=== PATIENT | male | born 1930 | race Caucasian/White ===

== ENCOUNTER 2018-10-08 02:03 | Inpatient (IN) | payer MEDICARE ==
[2018-10-08 02:35] LABS: #Eosinphils 0.3 thou/uL (0.0-0.7); #Lymphocytes 1.6 thou/uL (1.20-3.40); #Monocytes 0.6 thou/uL (0.11-0.59); #Neutrophils 3.3 thou/uL (1.40-6.50); %Basophils 0.6 % (0.0-1.0); %Eosinophils 4.7 % (0.0-10.0); %Lymphocytes 26.9 % (21.0-51.0); %Neutrophils 57.7 % (42.0-75.0); Hemoglobin 13.7 g/dL (14.0-18.0); Mean Corpuscular HGB CONC 33.8 g/dL (32.0-36.0); Mean Corpuscular Hemoglobin 32.3 pg (27.0-31.0); Mean Corpuscular Volume 95.4 fL (78.0-98.0); Mean Platelet Volume 7.2 fL (7.4-10.4); Platelet Count 178 thou/uL (130-400); RBC Distribution Width 12.6 % (11.5-14.5); Red Blood Cell (RBC) Count 4.26 mill/uL (4.70-6.10); White Blood Cell (WBC) Count 5.8 thou/uL (4.8-10.8)
[2018-10-08] MEDS ORDERED: Diltiazem HCl 125 MG, Admixture Fee 1 EACH in Sodium Chloride 0.9% 100 ML IVPB SCH (02:45)
[2018-10-08 02:57] LABS: ALT (SGPT) 11 U/L (8-55); AST (SGOT) 15 U/L (5-34); Albumin 3.5 g/dL (3.4-4.8); Alkaline Phosphatase 109 U/L (40-150); Anion Gap 14 mmol/L (10-20); BUN (Urea Nitrogen) 17 mg/dL (8.4-25.7); Bilirubin, Total 0.8 mg/dL (0.2-1.2); CK (CPK) 57 U/L (30-200); Calc. Creatinine Clearance 0 mL/min (70-130); Calcium 9.1 mg/dL (7.8-10.44); Carbon Dioxide 23 mmol/L (23-31); Chloride 105 mmol/L (98-107); Estimated GFR-MDRD 62; Globulin 3.4 g/dL (2.4-3.5); Glucose 126 mg/dL (83-110); Potassium 3.9 mmol/L (3.5-5.1); Protein, Total 6.9 g/dL (5.8-8.1); Sodium 138 mmol/L (136-145)
[2018-10-08 03:19] LABS: CKMB 2.1 ng/mL (0-6.6)
[2018-10-08] MEDS ORDERED: Enoxaparin Sodium 80 MG/0.8 ML SYRINGE ONE (05:13)
[2018-10-08 06:20] LABS: Troponin I 1.357 ng/mL (< 0.028)
[2018-10-08] MEDS ORDERED: Sodium Chloride 0.9% 1,000 ML IV SCH (06:45)
[2018-10-08 06:48] VITALS: BMI 25.4
[2018-10-08] MEDS ORDERED: Ondansetron ODT 4 MG TAB PO PRN (07:38)
[2018-10-08] MEDS ORDERED: Ondansetron PF 4 MG/2 ML Vial IVP PRN (07:38)
[2018-10-08] MEDS: Famotidine/PF 20 mg/2ml Vial SLOW IVP SCH ×2 (08:27→21:18)
--- NOTE | 2018-10-08 08:39 | RAD ---
CHEST ONE VIEW: History: Chest pain. Comparison: 05-20-17 FINDINGS: No left basilar airspace opacities. No pneumothorax. Mild pulmonary venous congestion. No acute osseo us abnormality. Dense calcifications of the transverse aorta. IMPRESSION: 1. Left basilar airspace opacity may reflect a combination of infection and scar. 2. Mild pulmonary venous congestion. POS: [facility]
[2018-10-08] MEDS ORDERED: Non-Formulary Item 1 EACH (Cholecalciferol (Vitamin D3) [Vitamin D3] 2,000 UNIT) PO SCH (09:00)
[2018-10-08 09:54] LABS: Troponin I 2.419 ng/mL (< 0.028)
[2018-10-08] MEDS ORDERED: Communication Order-Pharmacy FS SCH (11:00)
--- NOTE | 2018-10-08 11:22 | HP ---
CHIEF COMPLAINT: Chest pain with palpitations. HISTORY OF PRESENT ILLNESS: This is a pleasant 88-year-old man, presenting with chest pain that woke him from his sleep at approximately 1:00 a.m. this morning. He describes the pain as a pressure, 7/10 in severity, and radiating down to both shoulders and arms. He reports having a high threshold for pain and experiencing similar discomfort with previous MIs. He reports having palpitations. He was instructed by EMS to take 4 baby aspirins. Upon arrival by EMS, he was given nitroglycerin with immediate relief from his pain. Denies any recurrent pain since. The patient has a known history of IN x2. He had an IN in March of 1982 and May of 1982. In May of 1982, he underwent a CABG x1. Since then, he has been under Cardiology, undergoing followup every 6 months. Recently in June, he was switched from [facility] in [place] to [facility] since moving to [place]. The patient has been undergoing evaluation for potential permanent pacemaker. He last underwent studies including an echo in June 2018. In the ED, the patient underwent workup including an initial TNI that was normal. The second TNI was raised at 1.357. He was initiated on Lovenox 1 mg/kg in the ED, which we will continue. BNP was raised up to 1.5. Laboratory studies including full blood count and chemistry, otherwise unremarkable. The ECG obtained in the ED showed changes suggestive of a new AF with RVR. Therefore, he was started on Cardizem. He has been admitted for further workup and management for possible ACS. REVIEW OF SYSTEMS: The patient states he has been doing well overall and has had no general complaints in recent days. Reports having a good appetite with no weight loss. He denies any headaches. No vision disturbances. No recent sore throat. Has had some sinus congestion. Denies any shortness of breath or any cough. No abdominal pain, nausea, or vomiting. No recent changes with his stools. Denies having any genitourinary complaints. Has been mobilizing as normal without any difficulties. No weakness. No neurological symptoms. All other review of systems except those mentioned in HPI are negative. PAST MEDICAL HISTORY: 1. IN x2 in 1981. 2. Arrhythmia. 3. High cholesterol. PAST SURGICAL HISTORY: 1. Status post CABG in May 1982. SOCIAL HISTORY: The patient lives with his . Functions independently. Does not require any assistive devices to mobilize. Denies any alcohol abuse or illicit drug use. He is a nonsmoker. IMAGING STUDIES: Chest x-ray done on October 08, 2018, awaiting report. PHYSICAL EXAMINATION: VITAL SIGNS: Temperature 97.5, pulse 99, respirations 18, blood pressure 109/75 , and O2 saturation 95% on room air. GENERAL: The patient appears to be in good spirits. He is comfortable and resting. Does not appear to be in any distress. SKIN: Normal, warm, and dry without any rashes. HEENT: Normocephalic and atraumatic. Pupils equal, round, and reactive to light. Sclerae are anicteric. Oropharynx is clear. NECK: Supple without lymphadenopathy. CARDIOVASCULAR: Regular rate and rhythm. No reproducible chest pain on exam with palpation. LUNGS: Clear to auscultation bilaterally without any wheezes, rales, or rhonchi. ABDOMEN: Soft, nontender, nondistended. Normoactive bowel sounds present. EXTREMITIES: No clubbing, cyanosis, or edema. No calf tenderness. NEUROLOGIC: Alert and oriented x3. No focal deficits. ALLERGIES: Hydrocodone MEDICATIONS: 1. Tamsulosin 0.4 mg p.o. daily. 2. Ranexa 500 mg p.o. b.i.d. 3. Vitamin D3 of 2000 units p.o. daily. 4. Atorvastatin 40 mg p.o. at bedtime. 5. Propranolol 40 mg p.o. b.i.d. 6. Probiotic one capsule p.o. at bedtime. 7. Aspirin 81 mg p.o. daily. IMPRESSION AND PLAN: The patient will be admitted for management of the following conditions. 1. Chest pain. Second TNI raised at 1.357. ECG showing changes of new AF with RVR. Recent ECG with left bundle-branch block noted, unclear if this is new or old. Records including most recent ECGs will be obtained from [facility]. Cardiology consult placed. Lovenox 1 mg/kg twice daily started. Awaiting third TNI. 2. High cholesterol. Continue atorvastatin. 3. Gastrointestinal prophylaxis. 4. Venous thromboembolism prophylaxis with mechanical SCDs, given he has been initiated on Lovenox. Discussed with Dr. Mae, who agrees with the plan of care as described above. Job ID: [id number] [facility]
[2018-10-08] MEDS ORDERED: Aspirin 81 mg Enteric Coated Tablet PO SCH (12:30)
--- NOTE | 2018-10-08 12:32 | CON ---
DATE OF CONSULTATION: 10/08/2018 TYPE OF CONSULTATION: Cardiology. REASON FOR CONSULTATION: Non-ST elevation myocardial infarction, atrial fibrillation, and previous bypass surgery. HISTORY OF PRESENT ILLNESS: Mr. Kerr is a very pleasant 88-year-old gentleman, patient of Dr. Sung in [place]. The patient has a very long cardiac history. The patient stated he initially presented after having a myocardial infarction in 1981. He was at [facility] in [place]. He underwent bypass surgery x1, apparently a saphenous vein graft, as he said there was a vein harvested from his leg. He has done well since then. He has had occasional chest pain, but it is infrequent. He says he has been seen by a nurse aide evaluator and has a stress test about every 6 months. He has been doing well. He said he is at [place] and [place]. There is some consideration that he may at some point need pacemaker insertion. His chest pain was controlled on medicine. He started having chest pain at rest last night and ultimately came to the hospital with atrial fibrillation with a rapid ventricular response. He has been admitted here for further evaluation. PAST MEDICAL HISTORY: Past history as mentioned above. 1. Bypass surgery in 1981. 2. Apparently, he has angina as he is on Ranexa. 3. Hypercholesterolemia. ALLERGIES: HYDROCODONE. MEDICATIONS: At home; 1. Aspirin 81 mg a day. 2. Atorvastatin 40 mg a day. 3. Vitamin D3. 4. Ranexa 500 mg twice a day. 5. Tamsulosin 0.4 mg a day. 6. Propranolol 40 mg twice a day. SOCIAL HISTORY: No alcohol or tobacco. FAMILY HISTORY: Negative for heart disease at a young age. REVIEW OF SYSTEMS: CONSTITUTIONAL: No significant weight gain or loss. VISION: No changes. HEARING: No changes. PULMONARY: No cough or wheezing. GASTROINTESTINAL: No nausea, vomiting, or diarrhea. SKIN: No rashes. NEUROLOGIC: No unilateral weakness or numbness. PSYCHIATRIC: No unusual depression or anxiety. HEMATOLOGIC: No unusual bruising. GENITOURINARY: No burning with urination. MUSCULOSKELETAL: No unusual joint pains. PHYSICAL EXAMINATION: GENERAL: On examination, this is a pleasant elderly gentleman, in no distress. VITAL SIGNS: Blood pressure 112/65 and pulse 78, it is irregular. HEENT: Eyes, sclerae nonicteric. Mouth, mucous membranes moist. NECK: Supple. No lymphadenopathy. LUNGS: Clear anteriorly and posteriorly and some rhonchi. CARDIAC: Irregularly irregular. I do not hear murmur, rub, or gallop. ABDOMEN: Soft and nontender. No hepatosplenomegaly. EXTREMITIES: Warm and dry. No clubbing or cyanosis. There is no edema. Peripheral pulses are intact, dorsalis pedis and posterior tibial. SKIN: Warm and dry. PERTINENT LABORATORY: Hemoglobin is 13.7 and hematocrit 40.6. Potassium is 3.9 and creatinine is 1.13. Troponin 2.419. Medicines since he has arrived here, he has received Lovenox 1 mg/kg subcutaneously at 5:36 this morning. He is currently pain free. DIAGNOSTIC STUDIES: EKG shows sinus rhythm, right bundle-branch block, left axis deviation (bifascicular block). The patient did have a 3.6 second pause this morning after converting out of fibrillation into sinus rhythm. ASSESSMENT: 1. Coronary artery disease, status post coronary artery bypass grafting in 1981, 1-vessel bypass according to the patient. Most likely, this graft was occluded years ago. 2. Bifascicular block. 3. Paroxysmal atrial fibrillation with a rapid rate. 4. Tachycardia-bradycardia syndrome. 5. Inh-SK-tjjidptgb infarction probably related to demand ischemia with underlying coronary artery disease. PLAN: 1. He received Lovenox this morning. 2. Echocardiogram is pending. 3. Continue aspirin. 4. We will need cardiac catheterization and pacemaker insertion. We will tentatively schedule the catheterization tomorrow. Discussed risks of stroke, heart attack, iodine allergy, loss of blood supply to leg or kidney, stent thrombosis, and stent restenosis. Most likely, we will need pacemaker insertion at subsequent time, timing will be based on the findings of the cardiac catheterization. Job ID: [id number]
[2018-10-08] MEDS ORDERED: Non-Formulary Item 1 EACH (Lactobacillus Acidophilus [Probiotic] 1 CAPSULE) PO SCH (21:00)
[2018-10-08] MEDS ORDERED: Enoxaparin Sodium 80 MG/0.8 ML SYRINGE SC SCH ×2 (21:00)
[2018-10-08] MEDS: Atorvastatin Calcium 40 MG TAB PO SCH (21:18)
[2018-10-08] MEDS: Lactinex Tablet PO SCH (21:18)
[2018-10-09 05:32] LABS: #Eosinphils 0.3 thou/uL (0.0-0.7); #Lymphocytes 1.6 thou/uL (1.20-3.40); #Monocytes 0.6 thou/uL (0.11-0.59); #Neutrophils 3.1 thou/uL (1.40-6.50); %Basophils 0.9 % (0.0-1.0); %Eosinophils 4.6 % (0.0-10.0); %Lymphocytes 29.6 % (21.0-51.0); %Monocytes 9.9 % (0.0-10.0); %Neutrophils 55.1 % (42.0-75.0); Hemoglobin 13.8 g/dL (14.0-18.0); Mean Corpuscular HGB CONC 33.6 g/dL (32.0-36.0); Mean Corpuscular Hemoglobin 32.1 pg (27.0-31.0); Mean Corpuscular Volume 95.6 fL (78.0-98.0); Mean Platelet Volume 7.3 fL (7.4-10.4); Platelet Count 174 thou/uL (130-400); RBC Distribution Width 12.6 % (11.5-14.5); Red Blood Cell (RBC) Count 4.29 mill/uL (4.70-6.10); White Blood Cell (WBC) Count 5.5 thou/uL (4.8-10.8)
[2018-10-09] MEDS: Aspirin 81 mg Enteric Coated Tablet PO SCH (05:56)
[2018-10-09] MEDS: Famotidine/PF 20 mg/2ml Vial SLOW IVP SCH ×2 (05:56→21:13)
[2018-10-09] MEDS: Sodium Chloride 0.9% 1,000 ML IV SCH (05:56)
[2018-10-09 05:57] LABS: ALT (SGPT) 11 U/L (8-55); AST (SGOT) 21 U/L (5-34); Albumin 3.4 g/dL (3.4-4.8); Alkaline Phosphatase 106 U/L (40-150); Anion Gap 12 mmol/L (10-20); BUN (Urea Nitrogen) 13 mg/dL (8.4-25.7); Calc. Creatinine Clearance 52 mL/min (70-130); Calcium 9.4 mg/dL (7.8-10.44); Carbon Dioxide 27 mmol/L (23-31); Chloride 104 mmol/L (98-107); Estimated GFR-MDRD 59; Globulin 3.9 g/dL (2.4-3.5); Glucose 123 mg/dL (83-110); Potassium 3.9 mmol/L (3.5-5.1); Protein, Total 7.3 g/dL (5.8-8.1); Sodium 139 mmol/L (136-145)
[2018-10-09] MEDS ORDERED: Midazolam HCl 2 mg/2 ml Vial ONE (11:02)
[2018-10-09] MEDS ORDERED: Fentanyl 100 MCG/2 ML VIAL ONE (11:02)
[2018-10-09] MEDS ORDERED: Nitroglycerin 0.4 MG TAB (25 Tab Bottle) SL PRN (11:38)
[2018-10-09] MEDS ORDERED: Sodium Chloride 0.9% 200 ML IV PRN (11:45)
[2018-10-09 12:36] LABS: Hemoglobin 13.5 g/dL (14.0-18.0); Platelet Count 154 thou/uL (130-400)
--- NOTE | 2018-10-09 14:49 | PDOC.PN ---
- Subjective Encounter Start Date: 10/09/18 Encounter Start Time: 12:15 Subjective: Resting following catheterization. Lying flat. In no discomfort. -: Denies any further CP. No SOB. -: No issues overnight. Echo done showing EF of 30-35%, akinetic septum. LV mildly enlarged. LA mildly dilated. S/P catheterization: Severe CAD. Per patients , awaiting discussion with Cardiovascular surgeon. - Objective Vital Signs & Weight: Vital Signs (12 hours) Temp Pulse Resp BP Pulse Ox 10/09/18 09:05 98.7 F 61 18 98/52 L 98 10/09/18 04:00 97.6 F 63 20 132/63 95 Weight Weight 179 lb 4.8 oz I&O: 10/08/18 10/09/18 10/10/18 06:59 06:59 06:59 Intake Total 240 Output Total 1800 Balance -1560 Result Diagrams: 10/09/18 12:26 10/09/18 12:26 Phys Exam - Physical Examination Constitutional: NAD HEENT: PERRLA, moist MMs, oral pharynx no lesions Neck: no nodes, supple Respiratory: clear to auscultation bilateral Cardiovascular: RRR Gastrointestinal: soft, non-tender, no distention Psychiatric: normal affect, A&O x 3 Skin: no rash Dx/Plan (1) NSTEMI (non-ST elevated myocardial infarction) Code(s): I21.4 - NON-ST ELEVATION (NSTEMI) MYOCARDIAL INFARCTION Status: Acute (2) CAD (coronary artery disease) Code(s): I25.10 - ATHSCL HEART DISEASE OF [place] CORONARY ARTERY W/O ANG PCTRS Status: Acute (3) Bradycardia Code(s): R00.1 - BRADYCARDIA, UNSPECIFIED Status: Acute (4) Hx of CABG Status: Acute (5) Hx of myocardial infarction, greater than 8 weeks Code(s): I25.2 - OLD MYOCARDIAL INFARCTION Status: Acute - Plan cont current plan of care Severe CAD x 3. Awaiting cardiovascular surgery. -: Low HR 40's, Cardizem drip discontinued. HR normalized. -: Continue to monitor. -: Further management as per Cardio team. * .
[2018-10-09] MEDS ORDERED: Diltiazem 125 MG in Sodium Chloride 0.9% 100 ML IVPB SCH (18:00)
[2018-10-09] MEDS: Lactinex Tablet PO SCH (21:13)
[2018-10-09] MEDS: Atorvastatin Calcium 40 MG TAB PO SCH (21:13)
[2018-10-09] MEDS ORDERED: Amiodarone 450 MG, Admixture Fee 1 EACH in Dextrose 5% in Water 250 ML IVPB SCH (22:15)
[2018-10-09 22:49] VITALS: BP 97/59
[2018-10-10] MEDS: Sodium Chloride 0.9% 1,000 ML IV SCH (04:51)
[2018-10-10 04:53] LABS: #Eosinphils 0.3 thou/uL (0.0-0.7); #Lymphocytes 1.6 thou/uL (1.20-3.40); #Monocytes 0.7 thou/uL (0.11-0.59); #Neutrophils 4.8 thou/uL (1.40-6.50); %Basophils 0.3 % (0.0-1.0); %Eosinophils 3.5 % (0.0-10.0); %Monocytes 9.1 % (0.0-10.0); %Neutrophils 65.1 % (42.0-75.0); Hemoglobin 14.8 g/dL (14.0-18.0); Mean Corpuscular HGB CONC 33.4 g/dL (32.0-36.0); Mean Corpuscular Hemoglobin 31.8 pg (27.0-31.0); Mean Corpuscular Volume 95.3 fL (78.0-98.0); Mean Platelet Volume 7.2 fL (7.4-10.4); Platelet Count 175 thou/uL (130-400); RBC Distribution Width 12.6 % (11.5-14.5); Red Blood Cell (RBC) Count 4.64 mill/uL (4.70-6.10); White Blood Cell (WBC) Count 7.4 thou/uL (4.8-10.8)
[2018-10-10 05:11] LABS: ALT (SGPT) 10 U/L (8-55); AST (SGOT) 20 U/L (5-34); Albumin 3.4 g/dL (3.4-4.8); Alkaline Phosphatase 113 U/L (40-150); Anion Gap 11 mmol/L (10-20); BUN (Urea Nitrogen) 13 mg/dL (8.4-25.7); Calc. Creatinine Clearance 53 mL/min (70-130); Calcium 9.4 mg/dL (7.8-10.44); Carbon Dioxide 28 mmol/L (23-31); Chloride 105 mmol/L (98-107); Estimated GFR-MDRD 60; Globulin 4.1 g/dL (2.4-3.5); Glucose 115 mg/dL (83-110); Potassium 4.1 mmol/L (3.5-5.1); Protein, Total 7.5 g/dL (5.8-8.1); Sodium 140 mmol/L (136-145)
[2018-10-10] MEDS: Famotidine/PF 20 mg/2ml Vial SLOW IVP SCH ×2 (08:54→22:02)
[2018-10-10] MEDS: Aspirin 81 mg Enteric Coated Tablet PO SCH (08:54)
[2018-10-10] MEDS ORDERED: Diltiazem 125 MG in Sodium Chloride 0.9% 100 ML IVPB SCH (09:30)
--- NOTE | 2018-10-10 10:35 | CON ---
DATE OF CONSULTATION: 10/10/2018 SERVICE: Pulmonary Medicine. REASON FOR CONSULTATION: ICU patient. HISTORY OF PRESENT ILLNESS: The patient is an 88-year-old white male with past medical history significant for coronary artery disease. He is in his usual state of health when he went to bed last night. He woke up in the middle of the night with chest discomfort and bilateral arm discomfort. He presented to the emergency department, where he was discovered to have atrial fibrillation with RVR. He was given some medicines to control his rate, and he was tucked into the floor. Overnight, he was on the diltiazem drip. He converted to a sinus rhythm and he suddenly dropped his pulse down into the 40s. As such, he was routed over to the ICU. At this point, he really did not have any symptoms that were severe. In the ICU, he went back into atrial fibrillation with a rapid rate. He was on amiodarone temporarily, but now he is going back on the Cardizem. He had a cardiac catheterization that was performed overnight showing multivessel disease, which was quite severe. That being said, there was no ST-elevation changes on the EKG. A surgical consultation has been placed and is currently pending. The patient is currently asymptomatic. He denies any chest pain, shortness of breath, fevers, or chills. He is not having any of the symptoms that brought him into the hospital initially. He has been having a little bit of a cough for couple of days. He attributes this to allergies. He feels like he is going to have some quite of this draining into the back of the throat, for which he needs to cough. PAST MEDICAL HISTORY: 1. Coronary artery disease. 2. Dyslipidemia. 3. Atrial fibrillation. PAST SURGICAL HISTORY: Coronary artery bypass graft in 1981. SOCIAL HISTORY: The patient is fully independent. 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 Denies any alcohol or illicit drug use. He is a lifelong nonsmoker. He has no exposure to chemicals, dust, asbestos, or tuberculosis. FAMILY HISTORY: Noncontributory. ALLERGIES: HYDROCODONE. MEDICATIONS: List of his inpatient medications was reviewed. No specific updates were made at this time. REVIEW OF SYSTEMS: General; head, ears, eyes, nose, and throat; cardiovascular; respiratory; GI; ; musculoskeletal; neurologic; and skin are negative, except as mentioned in the HPI. PHYSICAL EXAMINATION: VITAL SIGNS: Afebrile, pulse 103, blood pressure 108/74, respirations 30, and saturation 95% on room air. HEENT: Normocephalic and atraumatic. Sclerae are white. Conjunctivae are pink. Oral mucosa is moist without lesions. LUNGS: Excellent air entry. There is no prolonged expiratory phase or wheezing present. Rhonchi are there but clear with cough. Most of these are transmitted from the upper airway. HEART: Tachycardiac. Irregular. ABDOMEN: Soft, nontender, and nondistended. Bowel sounds are positive. MUSCULOSKELETAL: No cyanosis or clubbing. There is no pitting in bilateral lower extremities. NEUROLOGIC: Grossly nonfocal. LABORATORY DATA: CBC is completely unremarkable. Troponin is up-trending to 2.4. BNP 201,000. Basic metabolic profile and liver function studies are otherwise unremarkable. IMAGING DATA: 1. Chest x-ray demonstrates no acute cardiopulmonary abnormality. 2. Echocardiogram demonstrates he has a left basilar airspace opacification, likely chronic in nature. 3. Echocardiogram demonstrates 30% to 35% ejection fraction. [place] is akinetic. Mild valvular abnormalities are otherwise noted. 4. Catheterization demonstrates multivessel disease. ASSESSMENT: 1. Chronic systolic heart failure. 2. Atrial fibrillation with rapid ventricular response. 3. Coronary artery disease, severe three-vessel. DISCUSSION AND PLAN: At this point, the patient is perfectly stable. Cardiothoracic Surgery consultation is currently pending. Since he had that bradycardic spell yesterday with conversion into a sinus rhythm, will stay in the ICU for an additional 24 hours. Pulmonary/Critical Care will continue to follow along in this location. If he remains stable, and will not be going for a surgery in the short term, he could be considered for transition to the floor in the morning. Job ID: [id number]
--- NOTE | 2018-10-10 11:50 | PDOC.PN ---
- Subjective Encounter Start Date: 10/10/18 Encounter Start Time: 11:48 Mr. Kerr was seen today in follow-up of NSTEMI, and AFIB with RVR. He does not have any complaints this morning. He denies feeling chest pain or shortness of breath. - Objective MAR Reviewed: Yes Vital Signs & Weight: Vital Signs (12 hours) Temp Pulse Ox 10/10/18 08:00 98.1 F 94 L 10/09/18 23:59 97.9 F 98 Weight Admit Weight 173 lb 11.588 oz Weight 179 lb 4.8 oz Most Recent Monitor Data Heart Rate from ECG 94 NIBP 125/92 NIBP BP-Mean 103 Respiration from ECG 12 SpO2 96 I&O: 10/09/18 10/10/18 10/11/18 06:59 06:59 06:59 Intake Total 240 1112 250 Output Total 1800 1730 520 Balance -1560 -618 -270 Result Diagrams: 10/10/18 04:26 10/10/18 04:26 Phys Exam - Physical Examination HEENT: PERRLA Respiratory: no wheezing, no rales, no rhonchi, clear to auscultation bilateral Cardiovascular: no significant murmur, no rub, irregular tachycardic Gastrointestinal: soft, non-tender, no distention, positive bowel sounds Musculoskeletal: no edema, pulses present Neurological: non-focal, moves all 4 limbs Dx/Plan (1) Atrial fibrillation, new onset Code(s): I48.91 - UNSPECIFIED ATRIAL FIBRILLATION Status: Acute (2) NSTEMI (non-ST elevated myocardial infarction) Code(s): I21.4 - NON-ST ELEVATION (NSTEMI) MYOCARDIAL INFARCTION Status: Acute (3) CAD (coronary artery disease) Code(s): I25.10 - ATHSCL HEART DISEASE OF [place] CORONARY ARTERY W/O ANG PCTRS Status: Acute - Plan * Atrial fibrillation- patient has variable heart rate, but mostly tachycardic. His heart rate tends to drop to the 40's and 50's even with very low dose of Cardizem. He normally sees Dr. Sung at [facility], and he had referred him to see Dr. Santiago for possible pacemaker placement. He may need this placed during this hospital stay * Dr. Lezama is his PCP * NSTEMI- it was noted he has 3 vessel CAD, with an EF of around 30%- He is awaiting CV surgery recommendation- likely he needs CABG * Continue Aspirin and Atorvastatin.
[2018-10-10] MEDS ORDERED: Metoprolol Tartrate 5 MG/5 ML VIAL ONE (13:28)
--- NOTE | 2018-10-10 13:29 | CON ---
DATE OF CONSULTATION: 10/10/2018 HISTORY OF PRESENT ILLNESS: This is an 88-year-old gentleman, who presented to the hospital two days ago after he was awakened with chest pain, found to be in atrial fibrillation with RVR. He had a slight troponin bump. He underwent cardiac catheterization demonstrating occluded LAD system with a patent saphenous vein graft to the LAD that was severely diseased with very diminished sluggish flow. The circumflex consisted of a single large vessel with about an 80% to 90% stenosis in its proximal portion. The right coronary artery was a codominant vessel with some mild irregularities and there was a small ramus branch that arose from the right coronary cusp with a stenosis being a rather small vessel. Cardiac echo showed an EF of 30% to 35% with apical and septal akinesis. PAST MEDICAL HISTORY: Dyslipidemia. PAST SURGICAL HISTORY: CAB X1 and bilateral knee replacement. SOCIAL HISTORY: The patient is , retired educator. He lives in [place] with his and is active in his pentecostal. Not as he used to be. His physicians have previously been in the [place] area and he more recently has begun seeing Dr. Sung for his cardiology requirements at [facility]. He has never smoked and does not drink. PHYSICAL EXAMINATION: GENERAL: Elderly gentleman. VITAL SIGNS: Weight 179, height 5 feet 11 inches. Heart rate presently 145 and appears regular. Blood pressure 140/70. NECK: No carotid bruits. LUNGS: Clear to auscultation.. CARDIAC: Tachycardia. No murmurs. Healed midline incision. ABDOMEN: Soft and nontender. EXTREMITIES: Vein harvesting from the right leg groin to the knee. Palpable femoral and popliteal pulses bilaterally. The patient with severe graft disease to a small LAD with apical and septal akinesis and high-grade large circumflex lesion. His options include redo coronary grafting to the LAD, OM1, and possible right coronary artery versus stenting of the large circumflex system. Either approach involves significant risk and we will discuss further with Dr. Dennison. Job ID: [id number] [facility]
[2018-10-10] MEDS ORDERED: Metoprolol Tartrate 5 MG/5 ML VIAL IVP PRN (14:27)
[2018-10-10] MEDS ORDERED: Amiodarone 450 MG, Admixture Fee 1 EACH in Dextrose 5% in Water 250 ML IVPB SCH (14:30)
--- NOTE | 2018-10-10 14:40 | PRG ---
DATE OF SERVICE: 10/10/2018 SUBJECTIVE: Mr. Kerr continues to have intermittent tachycardia. He has been taken off the Cardizem last night when he went into sinus rhythm, he got bradycardic. He was put on amiodarone, but it did not control his heart rate. Now, heart rate is the very variable between 92 even 150 on the intravenous Cardizem. We are in the process of giving him intravenous metoprolol. OBJECTIVE: VITAL SIGNS: Blood pressure is 106/60, pulse as mentioned above. LUNGS: Clear. CARDIAC: Tachycardic and irregular. ABDOMEN: Soft and nontender. EXTREMITIES: There is no edema. ASSESSMENT: 1. Previous bypass surgery with subtotal stenosis in the LAD graft, not clear that vessel can be re-bypassed. 2. Depressed left ventricular function. 3. 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 PLAN: 1. I spoke with Dr. Briseno, who feels that the patient is at prohibitive risk for reoperation and agrees he would be very high risk for surgery. 2. Consideration for permanent pacemaker insertion followed by resuming amiodarone to try to get the patient out of fibrillation. 3. Ultimately consider high risk percutaneous intervention to the circumflex consideration doing that with an Impella. The patient may need to be sent to another institution to consider having that done. My partners will be caring for this patient, I will be out in the upcoming time. Job ID: [id number]
--- NOTE | 2018-10-10 19:54 | PRG ---
DATE OF SERVICE: 10/10/2018 SUBJECTIVE: Mr. Kerr is improved. He is on intravenous amiodarone and subcutaneous enoxaparin. He is pain-free now. He is eating dinner. I had a discussion with this gentleman about his situation. He is in a high-risk situation. He is thought to be prohibitive risk for re-bypass based on his coronary anatomy. One option would be consideration for Impella supported high-risk PCI on the circumflex. The patient understands he is in a difficult situation. Fortunately, his heart rhythm is improved. The patient at this point is not sure if he wishes to be transferred. Dr. Vu will discuss this with him again tomorrow. The patient at this point is unsure whether he wishes to be transferred. He and his wish to have more time to think about that. They understand high-risk situation. Job ID: [id number]
--- NOTE | 2018-10-10 21:02 | CON ---
DATE OF CONSULTATION: 10/10/2018 This is Lyla Chan NP, dictating as scribe for Dr. Tam Mcdowell. TYPE OF CONSULTATION: Electrophysiology consultation. REASON FOR CONSULTATION: Atrial fibrillation, tachy-rufino syndrome. CONSULTING PHYSICIAN: Tam Mcdowell MD HISTORY OF PRESENT ILLNESS: Mr. Kerr is a very pleasant 88-year-old gentleman who is a patient of Dr. Sung in [place]. He does have a very extensive cardiac history. He had his initial myocardial infarction in 1981 and underwent a single-vessel bypass. He has done well since that time and has regular stress test performed. According to him, there has been discussion with him potentially needing a pacemaker for some time. He regularly has a home heart rate in the mid to low 50s, but has never had any syncopal or near syncopal episodes or symptoms associated with this according to him. He began experiencing chest pain the night of the and came to the hospital and found to be in atrial fibrillation with RVR. He was then admitted for further evaluation and monitoring. He underwent a left heart catheterization on the and was found to have severe three-vessel coronary artery disease. His LAD was occluded with diffuse disease in the saphenous vein graft to the LAD with thrombus. There was a large distribution circumflex that was 95% to 99% occluded, RCA with small distribution with 60% to 70% occlusion. EF is 30% on echo. There was consideration for him to have a redo bypass and Dr. Briseno was consulted. He discussed the possibility of a redo bypass versus stenting of the circumflex system. Either option does come with considerable risk. He was initially on telemetry floor and was placed on amiodarone for his atrial fibrillation with RVR. There was report of some bradycardia and conversion pauses and he was transferred to ICU for further monitoring. His amiodarone was discontinued and he was placed on diltiazem drip and his heart rate is largely sustained between 140 and 150 beats per minute. He was recently given IV Lopressor, which slowed his RVR and successfully converted him to sinus rhythm in the 60s and 70s. Currently, Mr. Steele is feeling well. He denies any heart racing, palpitations, chest pain, pressure, syncope, near syncope, stroke, or stroke-like symptoms. REVIEW OF SYSTEMS: A 12-point review of systems is conducted, it is negative except that listed above in the HPI. PAST MEDICAL HISTORY: 1. Coronary artery disease with single-vessel bypass in 1981. 2. Myocardial infarction in 1981. 3. Hypercholesterolemia. 4. Bilateral knee replacement. 5. Hypertension. SOCIAL HISTORY: , retired educator. Resides with his . Lives in [place]. Active member in his [employer]. Denies alcohol, tobacco, or illicit drug use. FAMILY HISTORY: Noncontributory. Negative for sudden cardiac or early-onset coronary artery disease. ALLERGIES: INCLUDE HYDROCODONE. HOME MEDICATIONS: 1. Tamsulosin 0.4 mg p.o. daily. 2. Ranexa 500 mg p.o. b.i.d. 3. Vitamin D3 2000 units daily. 4. Lipitor 40 mg p.o. at bedtime. 5. Propranolol 40 mg p.o. b.i.d. 6. Lactobacillus probiotic one capsule daily. 7. Aspirin 81 mg daily. PHYSICAL EXAMINATION: VITAL SIGNS: Most recent vital signs; pulse 74, blood pressure 119/75, respirations 21, oxygen is 95% on room air, and temperature 98.4. GENERAL: Mr. Kerr is alert and oriented. His speech is clear. His affect is appropriate. HEENT: Normocephalic, atraumatic. Sclerae anicteric. EOMs are intact. Oral mucosa is moist and pink with adequate dentition. NECK: Supple without jugular venous distention. Thyroid is not palpable. PULMONARY: Lungs are clear to auscultation bilaterally without wheezes, crackles, or rhonchi. CARDIAC: Heart rate is irregularly irregular with crisp S1, S2. PMI is palpable. EXTREMITIES: Warm and dry to touch without clubbing, cyanosis, or edema. GI: Abdomen is soft, nontender without palpable masses. Hepatojugular reflux is negative. NEUROLOGIC: Grossly intact cranial nerves 2 through 12, exam is nonfocal. MUSCULOSKELETAL: Gait was not assessed. Moves arms freely and equally with good strength. DATABASE: Hematology is reviewed and unremarkable. Platelet count is 175, hemoglobin is stable, and WBC 7.4. Chemistry; potassium 4.1, sodium 140, and creatinine 1.15. Serial troponins were conducted on the and were trending up, highest result was 2.4. BNP on 10/08 was 201. AST and ALT are within normal limits. Echocardiogram on 10/08/2018, ejection fraction 30% to 35% with an akinetic apex. Mild MR. No . Mild TR. Telemetry and EKGs all were personally reviewed and largely reflect atrial fibrillation occasionally with RVR. There were few conversion pauses as the patient attempted to go into normal sinus rhythm up to but not exceeding 3.6 seconds in duration. There was some reported bradycardia, although no tracings were printed and there was no full disclosure available for review as this was said to have happened on the telemetry floor. IMPRESSION: 1. Newly diagnosed atrial fibrillation with rapid ventricular response, persistent. 2. Coronary artery disease with prior bypass grafting in 1981 with extensive triple-vessel disease. 3. Right bundle-branch block. 4. Tachy-rufino syndrome. 5. Non-ST elevation myocardial infarction related to demand ischemia. RECOMMENDATIONS: A long discussion was held with Mr. Kerr and his regarding atrial arrhythmias and different treatment options. We discussed simply suppressing his atrial arrhythmias with antiarrhythmic therapy with amiodarone. His antiarrhythmic options are quite limited with his extensive coronary artery disease as well as his cardiomyopathy. I think gentle loading on amiodarone is the wisest route to go. At this point other than some conversion pauses, no prolonged or sustained bradycardia was available for review and the patient denies any syncopal or near syncopal episodes. His baseline resting heart rate at home is usually 50 to 55 beats per minute. For now, we will hold off insertion of a permanent pacemaker. We will continue to monitor him over the weekend. If he does get into trouble with bradycardia issues, I have discussed with Dr. Dennison that Dr. Vu can contact me if there is concern for an emergent need of a pacemaker. In the interim, we will start him on amiodarone drip and oral amiodarone in the morning. We will keep him n.p.o. Saturday for any potential pacemaker need and we will also begin anticoagulation regimen, which will be held Saturday. Since his heart rate did respond favorably to metoprolol, discontinued the diltiazem drip and removed that and provide p.r.n. IV Lopressor q.6 hours for heart rate control. Currently, he is sustaining in sinus rhythm. Thank you for allowing us to participate in the care of this patient. We will continue to follow. We did discuss the risks, benefits, and alternatives to pacemaker implantation. Risks include pain, swelling, bruising, infection, perforation of the pericardium, and possible need for CV surgery for chest tube insertion. The patient voiced understanding. Job ID: [id number]
[2018-10-10] MEDS ORDERED: Clopidogrel Bisulfate 300 MG TAB PO SCH (21:30)
[2018-10-10] MEDS: Aggrastat 12.5 MG/250 ML 250 ML IVPB SCH (21:58)
[2018-10-10] MEDS: Enoxaparin Sodium 80 MG/0.8 ML SYRINGE SC SCH (21:59)
[2018-10-10] MEDS: Atorvastatin Calcium 40 MG TAB PO SCH (22:00)
[2018-10-10] MEDS: Lactinex Tablet PO SCH (22:01)
--- NOTE | 2018-10-11 08:17 | PDOC.PN ---
- Subjective Encounter Start Date: 10/11/18 Encounter Start Time: 09:00 Subjective: Patient feeling a bit better this AM. No chest pain. Converted out of Afib -: last night on the Amiodarone. - Objective MAR Reviewed: Yes Vital Signs & Weight: Vital Signs (12 hours) Temp 10/11/18 07:00 97.6 F 10/11/18 04:00 98.0 F 10/11/18 00:00 97.8 F Weight Admit Weight 173 lb 11.588 oz Weight 179 lb 4.8 oz Most Recent Monitor Data Heart Rate from ECG 81 NIBP 112/67 NIBP BP-Mean 82 Respiration from ECG 23 SpO2 96 I&O: 10/10/18 10/11/18 10/12/18 06:59 06:59 06:59 Intake Total 1112 533.5 Output Total 1730 1200 180 Balance -618 -666.5 -180 Result Diagrams: 10/11/18 09:56 10/11/18 09:56 Phys Exam - Physical Examination Constitutional: NAD HEENT: moist MMs Respiratory: no wheezing, no rales, no rhonchi Cardiovascular: RRR Gastrointestinal: soft, positive bowel sounds Neurological: non-focal, moves all 4 limbs Psychiatric: normal affect, A&O x 3 Dx/Plan (1) NSTEMI (non-ST elevated myocardial infarction) Code(s): I21.4 - NON-ST ELEVATION (NSTEMI) MYOCARDIAL INFARCTION Status: Acute Comment: Now pain free, options for treatment are limited in previous CABG with difficult coronary architecture. Cardiology following and determining plan. On Lovenox, ASA, Atorvastatin (2) Atrial fibrillation, new onset Code(s): I48.91 - UNSPECIFIED ATRIAL FIBRILLATION Status: Acute Comment: Occ RVR with conversion pauses, reported bradycardia, controlling with Amiodarone for now (3) Bradycardia Code(s): R00.1 - BRADYCARDIA, UNSPECIFIED Status: Resolved (4) CAD (coronary artery disease) Code(s): I25.10 - ATHSCL HEART DISEASE OF [place] CORONARY ARTERY W/O ANG PCTRS Status: Chronic (5) Hx of CABG Status: Chronic - Plan cont current plan of care, DVT proph w/lovenox Plan for transfer to [facility] today if bed available. * . - Discharge Day Encounter end time: 09:20
[2018-10-11] MEDS: Amiodarone 200 MG TAB PO SCH ×3 (08:51→20:54)
[2018-10-11] MEDS: Enoxaparin Sodium 80 MG/0.8 ML SYRINGE SC SCH ×2 (08:51→20:54)
[2018-10-11] MEDS: Aspirin 81 mg Enteric Coated Tablet PO SCH (08:51)
[2018-10-11] MEDS: Sodium Chloride 0.9% 1,000 ML IV SCH (08:52)
[2018-10-11] MEDS: Famotidine/PF 20 mg/2ml Vial SLOW IVP SCH ×2 (08:52→20:54)
[2018-10-11 10:08] LABS: Hemoglobin 14.6 g/dL (14.0-18.0); Platelet Count 178 thou/uL (130-400)
--- NOTE | 2018-10-11 12:06 | PRG ---
DATE OF SERVICE: 10/11/2018 SUBJECTIVE: Mr. Kerr is doing well. No recurrent complaints. He was placed on Aggrastat in addition to Lovenox and Plavix last evening. He was turned down for repeat bypass surgery. OBJECTIVE: VITAL SIGNS: Current vital signs; blood pressure 118/73, pulse 76, and temperature afebrile. LUNGS: Clear to auscultation. HEART: Irregularly irregular. ABDOMEN: Soft, nontender, and nondistended. EXTREMITIES: No edema. IMPRESSION: 1. Severe multivessel disease. 2. New-onset atrial fibrillation. 3. Unstable angina. RECOMMENDATIONS: Mr. Kerr's current situation is complex. He has a significant thrombus present to the graft to the LAD. The LAD appear small. He also has a severe lesion present to a large left dominant circumflex artery. Dr. Dennison has felt this is a high-risk intervention. He would prefer the patient to be transferred to a center of higher level for high-risk intervention with likely use of Impella device. I discussed this in detail with the patient and his family. They have opted to be transferred to a higher level of care at the request of Dr. Yoly Dennison, but otherwise continue current medical therapy. Job ID: [id number]
[2018-10-11] MEDS: Aggrastat 12.5 MG/250 ML 250 ML IVPB SCH (12:44)
--- NOTE | 2018-10-11 14:22 | PRG ---
DATE OF SERVICE: 10/11/2018 SERVICE: Pulmonary Medicine. INTERVAL HISTORY: The patient is doing fine from respiratory standpoint. He is breathing comfortably. Denies any current chest pain, nausea, vomiting, fevers, or chills. He is eating comfortably. He continues to cough. He brings up very thick green sputum. That being said, there is not much there and he seems to think that it is improving a touch. Otherwise, there has been no notable change to his condition. Because of some technical issues with the severe multivessel disease, he is going to be best addressed at [facility]. As such, the referral for transfer to an outside facility has been initiated. PHYSICAL EXAMINATION: VITAL SIGNS: Afebrile, pulse 88, blood pressure 124/81, respirations 18, saturation 95% on room air. GENERAL: The patient is awake and alert, in no apparent distress. LUNGS: Excellent air entry. There is some rhonchi present. They clear with cough. No prolonged expiratory phase is present. There is a little bit of wheezing. HEART: Normal rate and regular. ABDOMEN: Soft, nontender, and nondistended. Bowel sounds are positive. MUSCULOSKELETAL: No cyanosis or clubbing. There is no pitting in the bilateral lower extremities. NEUROLOGIC: Grossly nonfocal. LABORATORY DATA: Hemoglobin 14.6. Basic metabolic profile and liver function studies are essentially unremarkable. Creatinine 1.05. ASSESSMENT: 1. Chronic systolic heart failure. 2. Atrial fibrillation with rapid ventricular response, return to sinus rhythm. 3. Coronary artery disease, severe three-vessel. 4. Unstable angina. DISCUSSION AND PLAN: The patient is stable for transition to [facility]. Current management will be continued while we await a bed open up over there. Pulmonary will continue to follow in this location but sign off if he transitions to the floor. Job ID: [id number]
--- NOTE | 2018-10-11 15:16 | PRG ---
DATE OF SERVICE: ADDENDUM: Mr. Kerr is doing better. He is on intravenous heparin and amiodarone and is stabilized. He is in sinus rhythm. Dr. Vu and I reviewed the case. Given this gentleman's high-risk situation, he has prohibitive risk for reoperation. Fortunately, he is becoming more hemodynamically stable since he is in sinus rhythm. We agreed that the patient should be transferred to a higher risk center for consideration of further intervention. One option would be to place an Impella inside the circumflex which supplies the vast majority of his viable myocardium. Discussed transfer this gentleman to [place] or some other facility, and the patient is unable to make a decision about that this evening. He understands that they are very difficult life-threatening situation. The patient does not wish to make a decision tonight. He will discuss this again tomorrow with Dr. Vu. Job ID: [id number]
--- NOTE | 2018-10-11 17:01 | EKG ---
Test Reason : CHEST PAIN Blood Pressure : / mmHG Vent. Rate : 094 BPM Atrial Rate : 079 BPM P-R Int : 000 ms QRS Dur : 148 ms QT Int : 392 ms P-R-T Axes : 000 -83 055 degrees QTc Int : 490 ms Atrial fibrillation with premature ventricular or aberrantly conducted complexes Left axis deviation Right bundle branch block Abnormal ECG Confirmed by DANNY HILTON ([id number]), slot editor AVRIL EGAN ([id number]) on 10/11/2018 5:00:54 PM Referred By: Confirmed By:DANNY HILTON
[2018-10-11] MEDS: Lactinex Tablet PO SCH (20:54)
[2018-10-11] MEDS: guaiFENesin ER 600 MG TAB PO SCH (20:54)
[2018-10-11] MEDS: Atorvastatin Calcium 40 MG TAB PO SCH (20:54)
[2018-10-12] MEDS: Aggrastat 12.5 MG/250 ML 250 ML IVPB SCH (05:43)
--- NOTE | 2018-10-12 08:06 | PDOC.CTH ---
Cardiology Progress Note - Subjective No complaints. Doing well. - Objective Vital Signs Temp Pulse Ox 10/12/18 07:26 97 10/12/18 04:00 97.8 F 10/12/18 01:12 96 10/12/18 00:00 97.7 F Admit Weight 173 lb 11.588 oz Weight 179 lb 4.8 oz 10/11/18 10/12/18 10/13/18 06:59 06:59 06:59 Intake Total 533.5 1260 Output Total 1200 1220 Balance -666.5 40 - Physical Examination General/Neuro: alert & oriented x3, NAD Neck: carotid US brisk, no JVD present Lungs: CTA, unlabored respirations Heart: other: (irr) Abdomen: NT/ND, soft Extremities: + femoral B - Telemetry Telemetry Rhythm: afib - Labs Result Diagrams: 10/11/18 09:56 10/11/18 09:56 Troponin/CKMB CK-MB (CK-2) 2.1 ng/mL (0-6.6) 10/08/18 02:25 Troponin I 2.419 ng/mL (< 0.028) H* 10/08/18 08:54 - Assessment/Plan Severe CAD Afib s/p CABG Subtotalled SVG to LAD with MUNA 2 flow noted and severe stenosis of the left circumflex artery (left dominant) Dr. Dennison recommendation to transfer to higher level of care Continue lovenox and aggrastat for now On plavix Pt to be transferred today
[2018-10-12] MEDS: Enoxaparin Sodium 80 MG/0.8 ML SYRINGE SC SCH (08:29)
[2018-10-12] MEDS: guaiFENesin ER 600 MG TAB PO SCH (08:30)
[2018-10-12] MEDS: Famotidine/PF 20 mg/2ml Vial SLOW IVP SCH (08:30)
[2018-10-12] MEDS: Amiodarone 200 MG TAB PO SCH (08:31)
[2018-10-12] MEDS: Aspirin 81 mg Enteric Coated Tablet PO SCH (08:31)
[2018-10-12 10:39] VITALS: TEMP 97.5
--- NOTE | 2018-10-12 11:04 | PRG ---
DATE OF SERVICE: 10/12/2018 SERVICE: Pulmonary Medicine. INTERVAL HISTORY: The patient is doing really well from respiratory standpoint. Breathing comfortably. Denies any current chest pain, fevers, or chills. Otherwise, there has been no interval change to his condition. He is just awaiting a bed at [facility]. Currently, they do not have anything available. PHYSICAL EXAMINATION: VITAL SIGNS: Afebrile, pulse 90, blood pressure 111/84, respirations 25, and saturation 98% on room air. GENERAL: The patient is awake and alert, in no apparent distress. LUNGS: Decent air entry. There is no prolonged expiratory phase. Minimal dependent crackles are present. HEART: Normal rate, regular. ABDOMEN: Soft, nontender, and nondistended. Bowel sounds are positive. MUSCULOSKELETAL: No cyanosis or clubbing. No pitting in bilateral lower extremities. NEUROLOGIC: Grossly nonfocal. ASSESSMENT: 1. Atrial fibrillation with rapid ventricular response, returned to sinus rhythm. 2. Coronary artery disease, severe three-vessel. 3. Unstable angina. 4. Chronic systolic heart failure without volume overload. DISCUSSION AND PLAN: The patient is stable for transition to the telemetry unit. I will continue to follow if he remains in-house. That being said, when he leaves the ICU, he will have no further requirements for inpatient Pulmonary/Critical Care opinion, and I will sign off. At this point, we are simply waiting for a bed to open up at [facility], so that destination therapy can be initiated. Job ID: [id number]
--- NOTE | 2018-10-12 19:42 | PDOC.PN ---
- Subjective Encounter Start Date: 10/12/18 Encounter Start Time: 19:30 Subjective: f/u for severe CAD with current mgmt with - Objective Vital Signs & Weight: Vital Signs (12 hours) Temp Pulse Resp Pulse Ox 10/12/18 12:00 97.5 F L 10/12/18 08:34 89 23 H 95 10/12/18 08:00 97.5 F L Weight Admit Weight 173 lb 11.588 oz Weight 179 lb 4.8 oz Most Recent Monitor Data Heart Rate from ECG 82 NIBP 133/70 NIBP BP-Mean 91 Respiration from ECG 25 SpO2 94 I&O: 10/11/18 10/12/18 10/13/18 06:59 06:59 06:59 Intake Total 533.5 1260 450 Output Total 1200 1220 200 Balance -666.5 40 250 Result Diagrams: 10/11/18 09:56 10/11/18 09:56 Dx/Plan - Plan * .
--- NOTE | 2018-10-12 22:50 | DIS ---
DATE OF ADMISSION: 10/08/2018 DATE OF DISCHARGE: 10/12/2018 DISCHARGE DIAGNOSES: 1. Severe three-vessel coronary artery disease. 2. Non-ST elevation myocardial infarction. 3. Atrial fibrillation with rapid ventricular response. 4. Bifascicular block. 5. Tachycardia-bradycardia syndrome. 6. Ischemic cardiomyopathy with ejection fraction of 30% to 35%. CONSULTATIONS: 1. Dr. Dennison with Cardiology Service. 2. Dr. Briseno with Cardiovascular Surgery Service. 3. Dr. Stern with Pulmonology Critical Care Service. 4. Dr. Mcdowell with Electrophysiology Service. PERTINENT LAB AND X-RAY FINDINGS: Creatinine ranged between 1.02 to 1.15. Estimated GFR ranged between 59 to 69. Troponin I ranged between 0.064 to 2.42. BNP 202. CBC showed a hemoglobin ranged between 13.5 to 14.8. Left heart catheterization dated 10/09/2018, showed severe three-vessel coronary artery disease with occlusion of the LAD diffusely with disease in the saphenous vein graft to LAD with thrombus. Large distribution circumflex 95% to 99% with small RCA distribution. Ejection fraction of 30%. 2D transthoracic echocardiogram dated 10/08/2018 showed ejection fraction of 30% to 35%. Akinetic apex. HOSPITAL COURSE: The patient was admitted after initially presenting with chest pain and palpitations in the context of known coronary artery disease. The patient underwent serial troponin I showing evidence for non-ST elevation myocardial infarction, prompting a Cardiology consult. The patient was evaluated by Cardiology Service and taken for left heart catheterization. The patient with prior CABG in the 1980s, undergoing a cardiac catheterization showing severe three-vessel coronary artery disease with findings as noted above with severe disease of the saphenous vein graft to LAD. Due to the patient's coronary anatomy and comorbid status, the patient was evaluated by Cardiothoracic Surgery Service for consideration of a redo coronary artery bypass grafting procedure. Due to patient's high risk situation and coronary anatomy, the patient was deemed a appropriate candidate to transfer to higher level of care for evaluation. The patient continued on anticoagulation therapy in addition to Aggrastat and aspirin. The patient was also treated for a new onset atrial fibrillation with rapid ventricular response with conversion back to sinus mechanism. The patient remained on rate control measures with metoprolol. The patient was cleared for transfer to [facility] after acceptance by the Cardiology Service and transferred on 10/12/2018. DISCHARGE MEDICATIONS: 1. Enteric-coated aspirin 81 mg daily. 2. Lipitor 40 mg at bedtime. 3. Vitamin D3 of 2000 units p.o. daily. 4. Lactobacillus one capsule p.o. at bedtime. 5. Propranolol 40 mg p.o. b.i.d. 6. Ranexa 500 mg p.o. b.i.d. 7. Tamsulosin 0.4 mg p.o. daily. FOLLOWUP: The patient may follow up with his primary care provider, after discharged from [facility]. CONDITION ON DISCHARGE: Guarded. ACTIVITY: Ad-darnell. DIET: Heart healthy. CODE STATUS: Full. DISPOSITION: Transfer to [facility] in [place], [place], 10/12/2018. Job ID: [id number]
== END 2018-10-12 12:45 | disposition short-term general hospital (02) | DRG 281 ==
LOC: ERS 02:03 → 2SW 06:36 → OBSVTOIN 10:04 → 2NO 19:48 → CCU 10-09 23:55
PROVIDERS: ADMIT Internal Medicine; ATTEND Internal Medicine
PROC: 4A023N7 Measurement of Cardiac Sampling and Pressure, Left Heart, Percutaneous Approach (ICD-10-PCS; principal; 2018-10-09)
PROC: B2111ZZ Fluoroscopy of Multiple Coronary Arteries using Low Osmolar Contrast (ICD-10-PCS; 2018-10-09)
PROC: B2151ZZ Fluoroscopy of Left Heart using Low Osmolar Contrast (ICD-10-PCS; 2018-10-09)
DX: I21.A1 Myocardial infarction type 2 (principal); I45.2 Bifascicular block; I50.22 Chronic systolic (congestive) heart failure; I48.0 Paroxysmal atrial fibrillation; Z95.1 Presence of aortocoronary bypass graft; E78.5 Hyperlipidemia, unspecified; I10 Essential (primary) hypertension; I25.5 Ischemic cardiomyopathy; I49.5 Sick sinus syndrome; I25.2 Old myocardial infarction; Z88.5 Allergy status to narcotic agent; Z79.899 Other long term (current) drug therapy; Z79.82 Long term (current) use of aspirin; I25.110 Atherosclerotic heart disease of native coronary artery with unstable angina pectoris; Z96.653 Presence of artificial knee joint, bilateral
CPT/HCPCS: 36415; 71045; 76942; 80053; 82550; 82553; 82565; 83880; 84484; 85014; 85018; 85025; 85049; 93005; 93306; 93455; 94640; 96365; 96366; 96372; C1769; J0282; J1644; J1650; J2250; J3010; J3246; J7050; J7070; J7620; S0028